=== PATIENT | male | born 2005 | race Caucasian/White ===

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

== ENCOUNTER 2024-12-03 00:33 | Emergency (ER) | payer SELFPAY ==
--- OUTSIDE RECORDS SUMMARY | 2024-01-10 04:00 | XMS_ITS ---
Author Organization [facility] Address [address] [place] [id number] Care Team Providers Care Inkjet Operator Name Role Phone Dr. Jenelle Doran Primary Care Provider [phone] Migration, Provider Unavailable Unavailable REASON FOR VISIT EMR-Veto Encounters Encounter Location Date Provider Diagnosis [address] [address] 01/10/2024 Provider Migration Plan Of Treatment No Information Progress Notes * Sarabjit BEANinDOB:2005 (19 yo M)Acc No.[id number]:01/10/2024 Patient: Ghassan PAYTON :2005 A ge:18 Y S ex:Male Address:[address] [place] [address], [address] Subjective: * Chief Complaints: * E MR-Veto * * Date:
--- OUTSIDE RECORDS SUMMARY | 2024-12-03 00:36 | XMS_ITS | Patient Health Record ---
Author Organization [facility] dicine Address [address] [place] [address] Care Team Providers Care Cab Worker Name Role Phone Dr. Jenelle Doran Primary Care Provider [phone] Migration, Provider Unavailable Unavailable Reason For Referral No Information Problems Problem Type SNOMED Code ICD Code Onset Dates Problem Status W/U Status Risk Notes Problem Otogenic otalgia (21577757) Otogenic pain (388.71) 09/18/19 16 Active confirmed Problem Nonvenomous insect bite of multiple sites (750668321) Other, multiple, and unspecified sites, insect bite, nonvenomous, without mention of infection (919.4) 10/27/19 18 Active confirmed Problem History and physical examination, administrative (68433643) Other general medical examination for administrative purposes (V70.3) 04/22/19 18 Active confirmed Problem 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) (247345690786102) Juvenile idiopathic scoliosis, thoracolumbar region (M41.115) 04/22/19 18 Active confirmed Problem Attention deficit hyperactivity disorder (632689979) Attention deficit disorder of childhood with hyperactivity (314.01) 05/20/19 17 Problem resolved confirmed Problem Well child visit (703607650) Routine or child health check (V20.2) 05/20/19 17 Problem resolved confirmed Problem Attention deficit hyperactivity disorder, combined type (74661064) Attention-deficit hyperactivity disorder, combined type (F90.2) 05/20/19 17 Problem resolved confirmed Problem Vaccination given (098939199) Encounter for immunization (Z23) 04/22/19 18 Problem resolved confirmed Problem History and physical examination, sports participation (procedure) (395728356) Encounter for examination for participation in sport (Z02.5) 04/22/19 18 Problem resolved confirmed Problem Child health medical examination (991298579) Encounter for routine child health examination without abnormal findings (Z00.129) 04/22/19 18 Problem resolved confirmed Problem Eruption of skin (654933538) Rash and other nonspecific skin eruption (R21) 10/28/19 18 Problem resolved confirmed Problem Cough (56203702) Cough (R05) 08/19/19 17 Problem resolved confirmed Problem Cough (48885344) Cough (786.2) 08/19/19 17 Problem resolved confirmed Problem Eruption of skin (409188662) Rash and other nonspecific skin eruption (782.1) 10/28/19 18 Problem resolved confirmed Problem Idiopathic kyphoscoliosis (disorder) (665155893) Scoliosis (and kyphoscoliosis), idiopathic (737.30) 04/22/19 18 Problem resolved confirmed Problem Allergic rhinitis (32196692) Allergic rhinitis, unspecified (J30.9) 07/01/19 19 Problem resolved confirmed Problem Allergic rhinitis (18540678) Allergic rhinitis, cause unspecified (477.9) 07/01/19 19 Problem resolved confirmed Encounters Encounter Location Date Provider Diagnosis [address] [address] 01/09/2024 Provider Migration [address] [address] 01/10/2024 Provider Migration Plan Of Treatment No Information Insurance Providers Payer Name Payer Address Payer Phone Subscriber Number Group Number Insured Name Patient Relationship to Insured Coverage Start Date Coverage End Date [facility] [address] [place] [address] [id number] Ghassan Bean Self - patient is the insured 1
--- OUTSIDE RECORDS SUMMARY | 2024-12-03 00:36 | XMS_ITS | Clinical Summary ---
Author Organization [facility] Address [address] [place] [address] Care Team Providers Care Commissary Clerk Name Role Phone No, Physician Primary Care Provider [phone] Allergies No known active allergies Medications amoxicillin-cla vulanate (Augmentin) 500-125 mg per tabletIndicatio ns:Strep pharyngitis Take 1 tablet (500 mg of amoxicillin total) by mouth 2 (two) times a day for 10 days 20 tablet 11/23/19 25 Active Problems No known active problems Encounters Date Type Department Care Team Description 11/12/2024 9:30 AM CDT Office Visit [facility] [place] [address] [place] [address] Jayna Serrato, PATRICE Sore throat (Primary Dx); Strep pharyngitis from Last 3 Months Social History Tobacco Use Types Packs/Day Years Used Date Smoking Tobacco: Never Tobacco Cessation:Counseling Given: Not Answered Sex and Gender Information Value Date Recorded Sex Assigned at Not on file 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 Gender Identity Not on file Sexual Orientation Not on file Obstetrics History Last Filed Vital Signs Vital Sign Reading Time Taken Comments Blood Pressure 108/56 11/12/2024 9:38 AM CDT Pulse 86 11/12/2024 9:38 AM CDT Temperature 37.6 C (99.6 F) 11/12/2024 9:38 AM CDT Respiratory Rate 18 11/12/2024 9:38 AM CDT Oxygen Saturation 97% 11/12/2024 9:38 AM CDT Inhaled Oxygen Concentration - - Weight 56.2 kg (123 lb 12.8 oz) 11/12/2024 9:38 AM CDT Height 175.3 cm (5' 9) 07/15/2023 3:1 1 PM CDT Body Mass Index 18.28 07/15/2023 3:11 PM CDT Plan of Treatment Health Maintenance Due Date Last Done Comments Depression Screening 2004 Hepatitis C Screening 2004 Meningococcal B Vaccine (1 of 2 - Standard) 2020 Regular Well Visit/Exam 18-64 2022 DTaP/Tdap/Td Vaccine (7 - Td or Tdap) 09/12/2024 09/12/2014, 10/24/2009, 04/24/2008, Additional history exists Influenza Vaccine (#1) 2024 , 02/17/2018, 12/02/2016, Additional history exists Hepatitis B Screening Completed 11/26/2005 , 2004, 2004, Additional history exists Pneumococcal vaccine <65 Completed 006, 2004, 2004 Varicella Vaccines Completed 04/24/2008, 11/26/2005 Meningococcal Vaccine Aged Out 09/14/2015 No laila brooklynn eligible based on patient's age to complete this topic HPV Vaccines Completed 05/02/2016, 12/10, 09/14/2015 Procedures Procedure Name Priority Date/Time Associated Diagnosis Comments POC INFLUENZA A/B, COVID-19 ANTIGEN Routine 11/12/2024 10:04 AM CDT Sore throat POCT RAPID STREP Routine 11/12/2024 9:50 AM CDT Sore throat from Last 3 Months Results * POC Influenza A/B, COVID-19 antigen (11/12/2024 10:04 AM CDT) Influenza A Ag, POC Negative Negative [facility] Influenza B Ag, POC Negative Negative [facility] COVID-19 Ag POC Presumptive Negative Presumptive Negative, Invalid [facility] [place] [facility] Nasal 11/12/2024 10:0 4 AM CDT us Jayna Serrato DIE TRY OUT WORKER POINT OF CARE TEST ORDERAB LES Final Result [facility] [address] [place] [address], [place] * (ABNORMAL) POCT rapid strep A (11/12/2024 9:50 AM CDT) Rapid Strep A, POC Positive(A ) Negative Swab 11/12/2024 9:50 AM CDT Jayna Serrtao DIE TRY OUT WORKER POINT OF CARE TEST ORDERAB LES Final Result from Last 3 Months Care Teams Commissary Clerk Relationship Specialty Start Date End Date No, Physician PCP - General Neurology 07/15/23
[2024-12-03 00:44] VITALS: BP 134/85; PULSE 85; RESP 18; TEMP 36.6; O2SAT 99
[2024-12-03 02:23] VITALS: BP 132/80; PULSE 86; RESP 20; TEMP 36.6; O2SAT 100
--- NOTE | 2024-12-03 03:22 | ED_ITS ---
HPI - Wound/Laceration General Chief Complaint: Wound/Laceration Stated Complaint: lac to left ring finger, bleeding since last night Time Seen by Provider: 12/03/24 03:06 History of Present Illness HPI narrative: This is a 19-year-old male with no significant past medical history who presents to the ED for finger laceration. Patient states that about 30 hours ago now, he was trying to open a frozen was on a box with a large knife when he accidentally stabbed into his distal left ring finger. He applied pressure to the area medially and applied a bandage. When he took off the dressing this evening, it was still bleeding prompting him to come to the ED. he is up-to-date on his vaccinations. Denies numbness, tingling. Related Data Allergies Allergy/AdvReac Type Severity Reaction Status Date / Time No Known Allergies Allergy Verified 12/03/24 02:26 Review of Systems Review of Systems: Gen.: Denies fevers or chills Eyes: Denies eye pain or visual change ENT: Denies congestion Respiratory: Denies shortness of breath or cough CV: Denies chest pain or palpitations GI: Denies abdominal pain nausea, emesis or diarrhea denies burning, urgency, frequency or hematuria Musculoskeletal: Denies back pain or muscle pain Neuro: Denies numbness, tingling, weakness or focal weakness Skin: As per HPI Except as documented, all other systems reviewed and negative Exam Narrative: APPEARANCE: No acute distress, nontoxic, resting in bed HEENT: Normocephalic, atraumatic, OMM RESPIRATORY: No respiratory distress CARDIOVASCULAR: Appears well perfused ABDOMINAL: Nondistended MUSCULOSKELETAl: Moves all extremities. No obvious deformities NEURO: Awake and alert. SKIN:: Warm, dry. 5 mm laceration to the distal medial aspect of the 4th D IP, some small oozing. Small abrasion medial to this, bleeding controlled. PSYCHIATRIC: Normal affect/mood, Course Vital Signs Vital signs: Vital Signs Temperature 98 F 12/03/24 00:44 Pulse Rate 85 12/03/24 00:44 Respiratory Rate 18 12/03/24 00:44 Blood Pressure 134/85 12/03/24 00:44 Pulse Oximetry 99 12/03/24 00:44 Oxygen Delivery Room Air 12/03/24 00:44 Temperature 97.9 F 12/03/24 02:23 Pulse Rate 86 12/03/24 02:23 Respiratory Rate 20 12/03/24 02:23 Blood Pressure 132/80 12/03/24 02:23 Pulse Oximetry 100 12/03/24 02:23 Oxygen Delivery Room Air 12/03/24 02:23 MDM - Wound/Laceration MDM Narrative Medical decision making narrative: 19-year-old male presenting for her continued bleeding from finger laceration from greater than 24 hours ago. On initial evaluation, patient was not in acute distress, afebrile, hemodynamically stable. I was able to slowly remove dressing to the left ring finger there was a small amount of oozing noted. Pressure was applied and bleeding was controlled. A nonadhesive pad was used to dress the wound in lieu of what was used previously. I suspect that the patient had controlled the bleeding lab self at home but had a dressing that was adherent so the scab was removed. As the laceration is older than 24 hours, it is not amenable to repair due to concerns for infection. Patient was educated on this and he is agreeable to this. He was advised to continue monitoring for bleeding. He was educated on adequate pain control. Patient was agreeable to this plan. Given strict return precautions. Differential Diagnosis Differential diagnosis: Likely laceration, abrasion and avulsion of skin Discharge Plan Discharge Clinical Impression: Laceration Patient Disposition: Home Condition: Stable Instructions: Antibiotic Form, Laceration (ED) Additional Instructions: Carefull change dressing tomorrow evening. Apply pressure if it begins bleeding again. Follow up with Dr. Whiting, family medicine, in the next week for reevaluation if needed. Return to the ED for new or worsening symptoms. Patient Language: Surinamese Prescriptions: No Action ondansetron 4 mg tablet,disintegrating 4 mg PO Q12H Qty: 14 0RF pantoprazole [Protonix] 40 mg tablet,delayed release (DR/EC) 40 mg PO HS Qty: 14 0RF Follow-up/Referrals: Alisa Whiting DO [Physician, Family Practice] PHYSICIAN NOT ON STAFF,NONSTAFF [Primary Care Provider]
--- OUTSIDE RECORDS SUMMARY | 2024-12-03 03:34 | XMS_ITS | Clinical Summary ---
Author Organization [facility] Address [address] [place] [address] Care Team Providers Care Credit Products Officer Name Role Phone No, Physician Primary Care Provider [phone] Allergies No known active allergies Medications amoxicillin-cla vulanate (Augmentin) 500-125 mg per tabletIndicatio ns:Strep pharyngitis Take 1 tablet (500 mg of amoxicillin total) by mouth 2 (two) times a day for 10 days 20 tablet 11/23/19 25 Active Problems No known active problems Encounters Date Type Department Care Team Description 11/12/2024 9:30 AM CDT Office Visit [facility] [place] [address] [place] [address] Jayna Serrato, PATRICE Sore throat (Primary Dx); Strep pharyngitis from Last 3 Months Social History Tobacco Use Types Packs/Day Years Used Date Smoking Tobacco: Never Tobacco Cessation:Counseling Given: Not Answered Sex and Gender Information Value Date Recorded Sex Assigned at Not on file 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 Gender Identity Not on file Sexual Orientation [...] CDT Height 175.3 cm (5' 9) 07/15/2023 3:11 PM CDT Body Mass Index 18.28 07/15/2023 [...] CDT) Influenza A Ag, POC Negative Negative [facility] [place] [place] [facility] Influenza B Ag, POC Negative Negative [facility] COVID-19 Ag POC Presumptive Negative Presumptive Negative, Invalid [facility] [place] [facility] Nasal 11/12/2024 10:0 4 AM CDT us Jayna Serrato OFFAL SEPARATOR POINT OF CARE TEST ORDERAB LES Final Result [facility] [address] [place] [address], [place] * (ABNORMAL) POCT rapid strep A (11/12/2024 9:50 AM CDT) Rapid Strep A, POC Positive(A ) Negative Swab 11/12/2024 9:50 AM CDT Jayna Serrato OFFAL SEPARATOR POINT OF CARE TEST ORDERAB LES Final Result from Last 3 Months Care Teams Credit Products Officer Relationship Specialty Start Date End Date No, Physician PCP - General Neurology 07/15/23
== END 2024-12-03 04:00 | disposition home or self-care (01) ==
LOC: ANHED 03:33
PROVIDERS: Emergency Provider Student in an Organized Health Care Education/Training Program
DX: S61.215A Laceration without foreign body of left ring finger without damage to nail, initial encounter (principal); W26.0XXA Contact with knife, initial encounter
CPT/HCPCS: 99282